=== PATIENT | male | born 1995 | race Caucasian/White ===

== ENCOUNTER 2024-04-28 18:44 | Emergency (ER) | payer OTHER, BC, SELFPAY ==
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
[2024-04-28 19:05] VITALS: BP 144/88; PULSE 77; RESP 16; TEMP 36.8; O2SAT 99
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
== END 2024-04-28 20:06 | disposition home or self-care (01) ==
PROVIDERS: Emergency Provider Nurse Practitioner Family
DX: S22.080A Wedge compression fracture of T11-T12 vertebra, initial encounter for closed fracture (principal); V49.40XA Driver injured in collision with unspecified motor vehicles in traffic accident, initial encounter; R03.0 Elevated blood-pressure reading, without diagnosis of hypertension
CPT/HCPCS: 72070; 99213; G0463

== ENCOUNTER 2024-10-09 08:00 | Emergency (ER) | payer BC, SELFPAY ==
--- NOTE | ~2024-10-09 | XR_ITS ---
XR wrist RT min 3V 10/09/2024 08:32 INDICATION: Status post fall. Right wrist pain. PROCEDURE: 4 views right wrist COMPARISON: No prior studies for comparison. FINDINGS: Fracture, dislocation or subluxation is not identified. The soft tissues appear within norm al limits. No foreign bodies are identified. IMPRESSION: 1: NO ACUTE BONE OR JOINT ABNORMALITY IDENTIFIED. Reviewed, dictated and finalized at location A.
--- OUTSIDE RECORDS SUMMARY | 2024-10-09 08:13 | XMS_ITS | Referral Summary ---
Author Organization [facility] Address [address] [place] [id number] Care Team Providers Care Pole Frame Construction Worker Name Role Phone Vicente Gifford MD Primary Care Provider [phone] Allergies No known active allergies Medications No known medications Active Problems Problem Noted Date Diagnosed Date Elbow pain 10/12/2015 Social History Tobacco Use Types Packs/Day Years Used Date Smoking Tobacco: Never Personal Safety Answer Date Recorded Getting School Help Needed Not on file 09/27 Sex and Gender Information Value Date Recorded Sex Assigned at Not on file 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 Gender Identity Not on file Sexual Orientation Not on file Last Filed Vital Signs Vital Sign Reading Time Taken Comments Blood Pressure - - Pulse - - Temperature - - Respiratory Rate - - Oxygen Saturation - - Inhaled Oxygen Concentration - - Weight 113.4 kg (250 lb) 06/25/2018 9:56 AM OPERATOR Height 193 cm (6' 4 ) 06/25/2018 9:56 AM OPERATOR Body Mass Index 30.43 06/25/2018 9:56 AM OPERATOR Plan of Treatment Not on file Insurance ANTHEM ACCESS COUNTS INCLUDE 234 BEDS AT [facility] [address] [place] [address] Care Teams Pole Frame Construction Worker Relationship Specialty Start Date End Date Vicente Gifford MD [address] [facility] [address] [place] [address] PCP - General Family Medicine 05/08/24
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
--- OUTSIDE RECORDS SUMMARY | 2024-10-09 08:13 | XMS_ITS | Clinical Summary ---
Author Organization [facility] Address [address] [address] Care Team Providers Care Adoption Worker Name Role Phone Lupe Simpson MD Primary Care Provider [phone] Source Comments [facility],non-owned Affiliates and Associated Physician Practices is amultiple site organization consisting of ambulatory clinics and hospital sitesin [place], [place], [place] and [place]. This disclosure is being madepursuant to the Care Everywhere program and may not contain all information available regarding this patient. Last updated 18.[facility] Allergies No known active allergies Medications * Be aware that medications may not be up to date on this document. Alwaysverify current medications with the patient. Medication Sig Dispensed Refills Start Date End Date Status FLUoxetine HCl (PROZAC PO) Take by mouth. Active Lisdexamfetamine Dimesylate (VYVANSE PO) Take by mouth. Active GuanFACINE HCl (INTUNIV PO) Take by mouth. Active Social History Tobacco Use Types Packs/Day Years Used Date Smoking Tobacco: Never Assessed Sex and Gender Information Value Date Recorded Sex Assigned at Not on file Gender Identity Not on file Sexual Orientation Not on file Last Filed Vital Signs Vital Sign Reading Time Taken Comments Blood Pressure 128/67 03/16/2013 5:45 AM CDT Pulse 66 03/16/2013 5:30 AM CDT Temperature 35.6 C (96 F) 03/16/2013 3:20 AM CDT Respiratory Rate 8 03/16/2013 5:30 AM CDT Oxygen Saturation 98% 03/16/2013 5:45 AM CDT Inhaled Oxygen Concentration - - Weight 90.7 kg (200 lb) 03/16/2013 3:20 AM CDT Height 190.5 cm (6' 3 ) 03/16/2013 3:20 AM CDT Body Mass Index 25 03/16/2013 3:20 AM CDT Plan of Treatment Health Maintenance Due Date Last Done Comments HIV SCREENING 2010 HEPATITIS C SCREENING 03/14/2013 DTAP/TDAP/TD VACCINES (1 - Tdap) 2014 HEPATITIS B VACCINE (1 of 3 - 19+ 3-dose series) 2014 COVID-19 VACCINE (1 - 2023-2 5 season) 2024 INFLUENZA VACCINE (#1) 2024 DEPRESSION SCREENING 07/16/2024 ZOSTER VACCINE (1 of 2) 2045 HIB VACCINE Aged Out No longer eligi ble based on patient's age to complete this topic HPV VACCINE Aged Out No longer eligi ble based on patient's age to complete this topic MENINGOCOCCAL (Group B) VACC INE SHARED DECISION-MAKING Aged Out No longer eligibl e based on patient's age to complete this topic MENINGOCOCCAL GROUPS A/C/Y/W VACCINE Aged Out No longer eligible b ased on patient's age to complete this topic PNEUMOCOCCAL VACCINE Aged Out No long er eligible based on patient's age to complete this topic Care Teams Adoption Worker Relationship Specialty Start Date End Date Lupe Simpson MD [address] [place] [address] PCP - General Pediatrics 03/28/13
[2024-10-09 08:15] VITALS: BP 131/74; PULSE 55; RESP 18; TEMP 36.7; O2SAT 100
--- OUTSIDE RECORDS SUMMARY | 2024-10-09 08:16 | XMS_ITS ---
Author Organization [facility] Address [address] [facility] [address] [place] [address] Care Team Providers Care Embedded Software Manager Name Role Phone Vicente Gifford Primary Care Provider Neville Gibbons Unavailable [phone] Oanh Tobias Unavailable [phone] ALLERGIES No Known Allergies RESULTS Component Value Reference Range Notes X ray : Thoracic Spine 3 vie ws, AP, Lateral, Swimmers Reviewed date:05/22/2024 01:13:36 PM Interpretation:[id number] Performing Lab: Notes/Report: [id number] REASON FOR REFERRAL Reason Eval and Treat Thor acic stabilitzation program,focus on home exercising program, Thoracic isometrics Diagnosis 1 Thoracic back pain ( M54.6) Referral Organization [facility] Referring Provider First Name Oanh Referring Provider Last Name Jatinder Referring Provider Speciality Nurse Prac graciela Referred Provider Specialty Physical The [facility]py Referral Priority Routine REASON FOR VISIT lumbar MEDICATIONS Medication SIG (Take, Route, Frequency, Duration) Notes Start Date End Date Status Medrol (Chas) as directed Orally a s directed for 6 days 05/21/2024 Active SOCIAL HISTORY Tobacco Use: Social History Observation Description Date Details (start date - stop date) Never Smoker NA - NA Sex Assigned At : Social History Observation Description Sex Assigned At Unknown Tobacco Use/Smoking Question Answer Notes Are you a nonsmoker VITAL SIGNS BMI 34.69 kg/m2 05/21/2024 Height 76 in 05/21/2024 Weight 285 lbs 05/21/2024 Encounters Encounter Location Date Provider Diagnosis [facility] [address] [facility] [address] [place] [address] 05/21/2024 Oanh Tobias Thoracic back pain M54.6 ASSESSMENTS Encounter Date Diagnosis Assessment Notes Treatment Notes Treatment Clinical Notes 05/21/2024 Thoracic back pain (ICD-10 - M54.6) PLAN OF TREATMENT Medication Medication Name Sig Start Date Stop Date Notes Medrol (Chas) as directed Orally as directed for 6 days 12/2023 Referrals Referral Date Details Eval and Treat Thor acic stabilitzation program,focus on home exercising program, Thoracic isometrics Consultation Request Notes Referral Date Referring Provider Referred Provider Not es 05/21/2024 Oanh Tobias , Porter and Treat Thoracic stabilitzation program,focus on home exercising program, Thoracic isometrics
--- OUTSIDE RECORDS SUMMARY | 2024-10-09 08:16 | XMS_ITS | Clinical Summary ---
Author Organization [facility] Address [address] [place] [address] Care Team Providers Care Hospital Unit Coordinator Name Role Phone Unavailable Primary Care Provider Unavailabl e Social History Tobacco Use Types Packs/Day Years Used Date Smoking Tobacco: Never Assessed Sex and Gender Information Value Date Recorded Sex Assigned at Not on file Legal Sex Male 8:58 PM CDT Gender Identity Not on file Sexual Orientation Not on file Last Filed Vital Signs Vital Sign Reading Time Taken Comments Blood Pressure 112/62 02/05/2015 9:00 AM CDT Pulse 84 02/05/2015 9:00 AM CDT Temperature - - Respiratory Rate - - Oxygen Saturation - - Inhaled Oxygen Concentration - - Weight 99.8 kg (220 lb) 02/05/2015 9:00 AM CDT Height 193 cm (6' 4 ) 02/05/2015 9:00 AM CDT Body Mass Index 26.78 02/05/2015 9:00 AM CDT Plan of Treatment Health Maintenance Due Date Last Done Comments Annual Physical 1998 Hepatitis C 2013 DTaP, Tdap and Td Vaccines ( 1 - Tdap) 2014 Hepatitis B Vaccines (1 of 3 - 19+ 3-dose series) 2014 COVID-19 Vaccine (2023-2 5 season) 2024 Influenza Adult (#1) 2024 HPV Vaccines Aged Out No longer eligi ble based on patient's age to complete this topic Meningococcal B Vaccine Aged Out No l onger eligible based on patient's age to complete this topic Meningococcal Vaccine Aged Out No abel michael eligible based on patient's age to complete this topic Pneumococcal Vaccine: Pediat rics (0 to 5 Years) and At-Risk Patients (6 to 64 Years) Aged Out No longer eligible b ased on patient's age to complete this topic RSV Immunizations Under 20 Months Aged Out No longer eligible based on patient's age to complete this topic
--- OUTSIDE RECORDS SUMMARY | 2024-10-09 08:16 | XMS_ITS | Patient Health Record ---
Author Organization [facility], Address [address] [place] [address] Care Team Providers Care Principal Secretary Name Role Phone Ирина Vicente Primary Care Provider Neville Gibbons Unavailable [phone] JatinderRasheedaen Unavailable [phone] ALLERGIES No Known Allergies RESULTS Component Value [...] Last Name Jatinder Referring Provider Speciality Nurse Jayy owens Referred Provider Specialty Physical The [facility] Referral Priority Routine MEDICATIONS Medication SIG (Take, Route, Frequency, Duration) [...] Notes Are you a nonsmoker VITAL SIGNS Height 76 in 05/21/2024 Weight 285 lbs 05/21/2024 BMI 34.69 kg/m2 05/21/2024 Encounters Encounter Location Date Provider Diagnosis [facility] [address] [place] [address] 05/21/2024 Oanh Vandergriff Thoracic back pain M54.6 ASSESSMENTS Encounter Date Diagnosis Assessment Notes Treatment Notes Treatment Clinical Notes 05/21/2024 Thoracic back pain (ICD-10 - M54.6) PLAN OF TREATMENT No Information Insurance Providers Payer Name Payer Address Payer Phone Subscriber Number Group Number Insured Name Patient Relationship to Insured Coverage Start Date Coverage End Date [employer] [place] [address] [place] [address] [id number] Armond Rosen Self - patient is the insured MEDICAL (GENERAL) HISTORY Medical History History ICD Code Unremarkable Surgical History Surgery Date(Month/Year) Appendectomy ACL Reconstruction Hospitalization History Reason Date(Month/Year) As per above.
--- NOTE | 2024-10-09 08:27 | ED_ITS ---
HPI - Extremity Injury (Upper) General Chief Complaint: Extremity Injury, Upper Stated Complaint: RT Wrist Pain Time Seen by Provider: 10/09/24 08:18 Source: patient and RN notes reviewed Mode of arrival: ambulatory Limitations: no limitations History of Present Illness HPI narrative: 29 year Old male, presents to the [facility] today with a fall. Patient states on Sunday he was shoveling feeder when he lost his footing and fell out of it approximately 10 ft to the ground. When he fell, he caught himself and landed on his right wrist. He denies hitting his head or any loss of consciousness. He denies any other injuries. He does complain of right wrist pain. He reports that initially with swallowing but the swelling has subsided now. He is able to use his right wrist But reports that there is pain when using his right wrist. He has been wearing a wrist splint that he has at home help with the pain. Related Data Home Medications ?Medication ?Instructions ?Recorded ?Confirmed ?Last Taken ?Type No Home Medications 10/09/24 10/09/24 Unknown History Allergies Allergy/AdvReac Type Severity Reaction Status Date / Time No Known Allergies Allergy Mild Unverified 10/09/24 08:19 Review of Systems Review of Systems: CONSTITUTIONAL: Denies fever, chills, or sweats. EYES: Denies visual changes, redness, or discharge. ENT: Denies rhinorrhea, congestion, sore throat, or otalgia. CARDIOVASCULAR: Denies chest pain, palpitations, or edema. RESPIRATORY: Denies cough or dyspnea. GASTROINTESTINAL: Denies abdominal pain, nausea, vomiting, or diarrhea. GENITOURINARY: Denies dysuria or hematuria. SKIN: Denies rash or itching. MUSCULOSKELETAL: Denies back pain, joint pain, neck pain, or myalgia. positive for right wrist injury. NEUROLOGIC: Denies headache, numbness, or weakness. Denies loss of consciousnes s PSYCHIATRIC: Denies anxiety or depression. All other systems reviewed are negative, except as documented in HPI. PMFSH Comments At the time of my signature, I reviewed and agree with the nursing past medical, surgical, social, and family history. There is no relevant family history pertinent to the patient complaint. Exam Narrative: GENERAL: This is a well-nourished, well-developed patient, in no apparent distress. HEAD: normocephalic, atraumatic. EYES: Sclera clear/white. Vision is grossly intact. pupils PERRLA. EARS: External ears normal, auditory canals clear and without drainage. Hearing grossly intact. NOSE: External nose normal with no obvious nasal discharge, no rhinorrhea. NECK: Neck supple, non-tender without lymphadenopathy, masses or thyromegaly. No cervical point tenderness. CARDIOVASCULAR: Regular rate and rhythm without murmurs, gallops, or rubs. RESPIRATORY: Clear to auscultation. Breath sounds equal bilaterally. No wheezes, rales, or rhonchi. GASTROINTESTINAL: Abdomen soft, non-tender, nondistended. SKIN: warm, Dry, intact with no suspicious lesions or rash, good texture and turgor. NEURO: awake, alert, and oriented to person, place and time. There were no obvious focal neurologic abnormalities. EXTREMITIES: Right wrist: there is bony tenderness to the distal end of the ulnar aspect of the wrist. No obvious swelling or deformity noted. Neurovascular status intact distal to injury. He is able to make a fist, an okay sign, and stop sign with this hand. BACK: Nontender without deformity. No CVA tenderness. Course Course Level of Care: Express Care Visit Vital Signs Vital signs: Vital Signs Temperature 98.0 F 10/09/24 08:15 Pulse Rate 55 L 10/09/24 08:15 Respiratory Rate 18 10/09/24 08:15 Blood Pressure 131/74 10/09/24 08:15 Pulse Oximetry 100 10/09/24 08:15 Oxygen Delivery Room Air 10/09/24 08:15 Temperature 98.0 F 10/09/24 08:15 Pulse Rate 55 L 10/09/24 08:15 Respiratory Rate 18 10/09/24 08:15 Blood Pressure 131/74 10/09/24 08:15 Pulse Oximetry 100 10/09/24 08:15 Oxygen Delivery Room Air 10/09/24 08:15 reviewed MDM - Extremity Injury (Upper) MDM Narrative Medical decision making narrative: Patient does report that he did fall 10 ft to the ground on Sunday approximately 6 days ago. Is able to catch himself before hitting his head he said. His exam is unremarkable for further injuries other than his right wrist pain that he reports. There is bony tenderness to palpation to the right ulnar part of the wrist. There is no obvious swelling or deformity. X-ray of the wrist is negative for acute fracture. Conservative therapy was discussed with patient, he continue to wear his wrist splint for comfort. Advised that the pain persists longer than 2 or 3 weeks to go see an orthopedist or his primary care provider for further evaluation. Anticipatory guidance given. Differential Diagnosis Differential diagnosis: Likely sprain and strain of wrist, fracture of wrist and fracture of hand Imaging Data Radiologist's impression: INDICATION: Status post fall. Right wrist pain. PROCEDURE: 4 views right wrist COMPARISON: No prior studies for comparison. FINDINGS: Fracture, dislocation or subluxation is not identified. The soft tissues appear within normal limits. No foreign bodies are identified. IMPRESSION: 1: NO ACUTE BONE OR JOINT ABNORMALITY IDENTIFIED. Critical Care Time Critical Care Time Critical Care Time: No Discharge Plan Discharge Clinical Impression: Injury of wrist, right Qualifiers: Encounter type: initial encounter Qualified Code(s): S69.91XA - Unspecified injury of right wrist, hand and finger(s), initial encounter Patient Disposition: Home, Self-Care Condition: Stable Instructions: Wrist Injury (ED), P.R.I.C.E. Treatment (ED) Additional Instructions: Your wrist x-ray was negative for fracture. Continue to wear the wrist splint as needed for comfort. Please follow [facility] for conservative management. You may use Tylenol or ibuprofen as needed for pain. If your pain does not improve in 2 or 3 weeks you may need to go see an orthopedist or your primary care provider for further evaluation. If your symptoms worsen or there is a change in your condition go to the ER for further evaluation. Patient Language: Lithuanian Prescriptions: No Action No Home Medications Follow-up/Referrals: Maykel Stewart MD [Physician] - (Follow up if pain persist after 2 weeks. ) PHYSICIAN,[employer] [Primary Care Provider] - Time of Disposition: 08:59
== END 2024-10-09 09:06 | disposition home or self-care (01) ==
DX: S69.91XA Unspecified injury of right wrist, hand and finger(s), initial encounter (principal); W17.89XA Other fall from one level to another, initial encounter
CPT/HCPCS: 73110; 99213; G0463